=== PATIENT | female | born 1990 | race Two or more races ===

== ENCOUNTER 2024-07-03 09:21 | Emergency (ER) | payer OTHER ==
[~2024-07-03] VITALS: Ht 152.4 cm; Wt 53.1 kg
[2024-07-03] MEDS ORDERED: DIALYVITE 800-1 EACH (09:50)
[2024-07-03] MEDS ORDERED: KETOROLAC TROMETHAMINE 30 MG VIAL IM ONE (10:45)
[2024-07-03 10:59] LABS: HEMATOCRIT 30.4 % (36.0-45.00); HEMOGLOBIN 10.6 g/dL (12.0-15.00); MEAN CELL VOLUME 90.7 fL (80.00-100.00); MEAN CORPUSCULAR HEMOGLOBIN 31.6 pg (27.00-32.0); MEAN CORPUSCULAR HGB CONC 34.8 g/dl (32.0-36.0); PLATELET COUNT 233 K/uL (150-450); RED BLOOD COUNT 3.35 M/uL (4.00-6.00); RED CELL DISTRIBUTION WIDTH 12.4 % (11.5-14.5)
[2024-07-03 11:30] LABS: CALCIUM 8.9 mg/dL (8.5-10.1); CREATININE SERUM 0.43 mg/dL (0.55-1.02); GFR 168.08; POTASSIUM 3.53 mEq/L (3.5-5.1)
== END 2024-07-03 12:46 | disposition home or self-care (01) ==
LOC: ER 09:23
PROVIDERS: General Practice
DX: O26.892 Other specified pregnancy related conditions, second trimester (principal); S61.239A Puncture wound without foreign body of unspecified finger without damage to nail, initial encounter; W46.1XXA Contact with contaminated hypodermic needle, initial encounter; Y93.89 Activity, other specified; Y92.89 Other specified places as the place of occurrence of the external cause; Y99.9 Unspecified external cause status; Z3A.17 17 weeks gestation of pregnancy; Z88.8 Allergy status to other drugs, medicaments and biological substances

== ENCOUNTER 2024-07-25 13:27 | Emergency (ER) | payer OTHER ==
[~2024-07-25] VITALS: Ht 152.4 cm; Wt 54.4 kg
[~2024-07-25 13:27] MED LIST: DIALYVITE 800-1 EACH
[2024-07-25] MEDS ORDERED: FOLIC ACID20 MG (14:37)
[2024-07-25] MEDS ORDERED: ACETAMINOPHEN 500 MG GEL..CAP PO ONE (16:30)
[2024-07-25] MEDS ORDERED: ONDANSETRON HCL 2 MG/ML VIAL IV ONE (16:30)
[2024-07-25 17:19] LABS: HEMATOCRIT 30.8 % (36.0-45.00); HEMOGLOBIN 10.5 g/dL (12.0-15.00); MEAN CELL VOLUME 89.9 fL (80.00-100.00); MEAN CORPUSCULAR HEMOGLOBIN 30.8 pg (27.00-32.0); MEAN CORPUSCULAR HGB CONC 34.2 g/dl (32.0-36.0); PLATELET COUNT 325 K/uL (150-450); RED BLOOD COUNT 3.42 M/uL (4.00-6.00); RED CELL DISTRIBUTION WIDTH 12.4 % (11.5-14.5)
[2024-07-25 18:19] LABS: ALBUMIN 2.8 gm/dL (3.4-5.0); BILIRUBIN TOTAL 0.48 mg/dL (0.3-1.2); CREATININE SERUM 0.49 mg/dL (0.55-1.02); GFR 144.56; GLOBULINA 4.7 G/DL (2.4-3.5); POTASSIUM 4.24 mEq/L (3.5-5.1); TOTAL PROTEIN 7.5 gm/dL (6.4-8.2)
[2024-07-25 18:44] LABS: PH,URINE 6.5 (5.0-8.0); URINE APPEARANCE Cloudy; URINE BILIRRUBIN Negative (NEGATIVE); URINE BLOOD Small; URINE COLOR Yellow; URINE GLUCOSE Negative (NEGATIVE); URINE KETONE Negative (NEGATIVE); URINE LEUKOCYTE Small; URINE NITRATE Negative; URINE PROTEIN Trace (NEGATIVE); URINE UROBILINOGEN 0.2 E.U./dl
[2024-07-25 18:45] LABS: URINE BACTERIA 4302.6 uL (0.0-1933); URINE CAST 0.15 uL (0.0-1.40); URINE EPITHELIAL CELLS 29.8 uL (0.0-38.8); URINE RBC 42.5 uL (0.0-20.8); URINE WBC 102.7 uL (0.0-23.2)
[2024-07-25] MEDS ORDERED: CEPHALEXIN500 M1 PO (19:26)
[2024-07-25] MEDS ORDERED: ONDANSETRON HCL4 MG PO (19:26)
[2024-07-25] MEDS ORDERED: CEFTRIAXONE SODIUM 2,000 MG VIAL IV ONE (19:30)
== END 2024-07-25 20:09 ==
LOC: ER 13:27
PROVIDERS: Nurse Practitioner Family
DX: O23.32 Infections of other parts of urinary tract in pregnancy, second trimester (principal); I47.19 Other supraventricular tachycardia; Z3A.20 20 weeks gestation of pregnancy; Z20.822 Contact with and (suspected) exposure to COVID-19; B96.29 Other Escherichia coli [E. coli] as the cause of diseases classified elsewhere; Z16.11 Resistance to penicillins; Z88.8 Allergy status to other drugs, medicaments and biological substances